=== PATIENT | female | born 1990 | race Caucasian/White ===

== ENCOUNTER 2019-11-19 21:27 | Emergency (ER) | payer OTHER ==
[~2019-11-19] VITALS: Ht 172.7 cm; Wt 77.1 kg
[2019-11-19] MEDS ORDERED: ONDANSETRON 4 MG TAB.RAPDIS SL ONE (22:30)
[2019-11-19] MEDS ORDERED: ONDANSETRON 4 MG TAB.RAPDIS ONE (22:31)
--- NOTE | 2019-11-19 22:34 | NUR ---
BIBSFROM HOME TO ER BED 3. AAOX4. NO DISTRESS NOTED. BREATHING EVEN AND UNLABORED. AMBULATORY. C/O FLULIKE SYMPTOMS X 2 DAYS. PT REPORT FEVER WHICH IS NOTED 102.1 ORAL. HEADACHE, GED BODY ACHE AND PAIN. AND COUGHING. MD WAS AT BEDSIDE FOR EVAL. ORDERS RECEIVED NOOTED AND CARRIED OUT.
--- NOTE | 2019-11-19 22:44 | NUR ---
XRAY AT BEDSIDE
[2019-11-19] MEDS ORDERED: IBUPROFEN 600 MG TABLET PO ONE ×2 (23:00→23:06)
--- NOTE | 2019-11-19 23:11 | NUR ---
PT IS FEELING BETTER FROM NAUSEA. ABLE TO TOLERATE PO TRIALS. MEDICATION GIVEN ORDERED.
--- NOTE | 2019-11-20 00:10 | NUR ---
Patient discharged to home in stable condition. Written and verbal after care instructions given. Patient verbalizes understanding of instruction. Pt ambulatory with a steady gait
[2019-11-20 01:09] VITALS: BP 131/72
== END 2019-11-20 00:10 | disposition home or self-care (01) ==
LOC: ER 21:32
DX: J18.9 Pneumonia, unspecified organism (principal); R11.2 Nausea with vomiting, unspecified; J45.909 Unspecified asthma, uncomplicated; Z90.89 Acquired absence of other organs; Z91.018 Allergy to other foods
CPT/HCPCS: 71045; 87804 ×2; 99284; J7040; Q0162